=== PATIENT | female | born 1950 | race Caucasian/White ===

== ENCOUNTER 2016-10-06 07:20 | Emergency (ER) | payer MEDICAID, OTHER ==
[~2016-10-06] VITALS: Ht 167.6 cm; Wt 54.4 kg
[2016-10-06] MEDS ORDERED: ALBUTEROL SULF 2.5 MG/0.5ML(0.5%) NEB SOLN NEB ONE (08:45)
[2016-10-06] MEDS ORDERED: IPRATROPIUM BROM 0.5 MG/2.5ML INH SOL NEB ONE (08:45)
[2016-10-06 08:49] LABS: Basophils # (auto) 0 uL; Basophils % (auto) 0.5 % (0.0-2.0); Eosinophils # (auto) 0.3 uL; Eosinophils % (auto) 3.9 % (0.0-7.0); Hematocrit 42.3 % (36.0-46.0); Lymphocytes # (auto) 1.5 uL; Lymphocytes % (auto) 21.3 % (10.0-50.0); Mean Corpuscular Hemoglobin 30.1 pg (28.0-32.0); Mean Corpuscular Hgb Conc. 33.2 g/dL (32.0-36.0); Mean Corpuscular Volume 90.7 fL (80.0-100.0); Mean Platelet Volume 7.1 fL (7.4-10.4); Monocytes # (auto) 0.7 uL; Monocytes % (auto) 10.4 % (0.0-12.0); Neutrophils # (auto) 4.4 uL; Neutrophils % (auto) 63.9 % (37.0-80.0); Platelet Count (auto) 380 10^3/uL (140-450); Red Cell Distribution Width 13.6 % (11.6-16.0); White Blood Cell 6.9 10^3/uL (4.4-10.8)
[2016-10-06 09:16] LABS: Albumin 3.6 g/dL (3.4-5.0); BUN/Creatinine Ratio 11.4; Bilirubin, Total 0.2 mg/dL (0.2-1.0); Calcium 10.6 mg/dL (8.5-10.1); Magnesium 2.1 mg/dL (1.6-2.6); Potassium 3.8 mmol/L (3.5-5.1); Total Protein 7.6 g/dL (6.4-8.2)
[2016-10-06] MEDS ORDERED: ALBUAER3 IN (10:05)
[2016-10-06] MEDS ORDERED: LISI40TA PO (10:05)
[2016-10-06] MEDS ORDERED: FLUT250M2 INH (10:05)
[2016-10-06] MEDS ORDERED: ZOLP5TAB5 PO (10:05)
[2016-10-06] MEDS ORDERED: ATEN-60 PO (10:05)
[2016-10-06] MEDS ORDERED: CARI250T8 PO (10:26)
[2016-10-06] MEDS ORDERED: methylPREDNISolone SOD SUCC 125 MG/2 ML VL IV ONE (10:45)
[2016-10-06 11:07] VITALS: BP 153/99
== END 2016-10-06 12:59 | disposition home or self-care (01) ==
LOC: ER 07:27
DX: J44.0 Chronic obstructive pulmonary disease with (acute) lower respiratory infection (principal); J20.9 Acute bronchitis, unspecified; E83.52 Hypercalcemia; G62.9 Polyneuropathy, unspecified; I10 Essential (primary) hypertension; R73.9 Hyperglycemia, unspecified
CPT/HCPCS: 36415; 71010; 80053; 83735; 84484; 85025; 85049; 93005; 94640; 96374; 99285; J2930

== ENCOUNTER 2021-09-24 08:57 | Emergency (ER) | payer MEDICAID, MEDICARE ==
[~2021-09-24] VITALS: Ht 152.4 cm; Wt 41.3 kg
[~2021-09-24 08:57] MED LIST: ALBUAER3 IN; AMLO-489 PO; ATEN-60 PO; CARI250T PO; FLUT250M2 INH; LISI40TA11 PO; ZOLP5TAB5 PO
[2021-09-24 09:53] LABS: Basophils # (auto) 0.1 10 ^3/uL (0-0.2); Basophils % (auto) 0.5 % (0.0-2.0); Eosinophils # (auto) 0.2 10 ^3/uL (0-0.8); Eosinophils % (auto) 1.6 % (0.0-7.0); Hematocrit 38.5 % (36.0-46.0); Hemoglobin 12.8 g/dL (12.2-16.2); Lymphocytes # (auto) 0.6 10 ^3/uL (0.4-5.4); Lymphocytes % (auto) 4.6 % (10.0-50.0); Mean Corpuscular Hemoglobin 30.1 pg (28.0-32.0); Mean Corpuscular Hgb Conc. 33.2 g/dL (32.0-36.0); Mean Corpuscular Volume 90.8 fL (80.0-100.0); Monocytes # (auto) 0.7 10 ^3/uL (0-1.3); Monocytes % (auto) 5.2 % (0.0-12.0); Neutrophils # (auto) 11.5 10 ^3/uL (1.6-8.6); Neutrophils % (auto) 88.1 % (37.0-80.0); Nucleated Red Blood Cells % 0.1 %; Red Blood Cells 4.24 10^6/uL (4.0-5.20); White Blood Cell 13.1 10^3/uL (4.4-10.8)
[2021-09-24 10:13] LABS: Albumin 3.4 g/dL (3.4-5.0); Potassium 3.4 mmol/L (3.5-5.1)
[2021-09-24 10:18] LABS: BUN/Creatinine Ratio 21.6; Bilirubin, Total 0.2 mg/dL (0.2-1.0); Total Protein 6.9 g/dL (6.4-8.2)
[2021-09-24 13:44] LABS: Urine Bacteria FEW /hpf (None Seen); Urine Blood Negative /uL (Negative); Urine Hyaline Cast FEW /lpf (0 - 2); Urine Specific Gravity 1.018 (1.001-1.035); Urine WBC 3 /hpf (0 - 5)
[2021-09-24] MEDS ORDERED: PERCOT PO (15:14)
[2021-09-24] MEDS ORDERED: CIPR-173 PO (15:14)
[2021-09-24 15:30] VITALS: BP 132/82
== END 2021-09-24 15:31 | disposition home or self-care (01) ==
LOC: EDBD 08:57 → ER 08:57
DX: K80.20 Calculus of gallbladder without cholecystitis without obstruction (principal); J44.9 Chronic obstructive pulmonary disease, unspecified; I10 Essential (primary) hypertension
CPT/HCPCS: 36415; 74176; 80053; 81001; 83690; 84484; 85025; 93005

== ENCOUNTER 2021-09-28 23:45 | Inpatient (IN) | payer MEDICARE, MEDICAID ==
[~2021-09-28] VITALS: Ht 160 cm; Wt 40.5 kg
[~2021-09-28 23:45] MED LIST changes: +CIPR-173 PO; +PERCOT PO
[2021-09-29] MEDS ORDERED: MORPHINE SULFATE 4 MG/ML SYR/VIAL IV ONE (01:00)
[2021-09-29] MEDS ORDERED: ONDANSETRON HCL 4 MG/2 ML VIAL IV ONE (01:00)
[2021-09-29] MEDS ORDERED: SODIUM CHLORIDE 0.9% 500 ML IVB ONE (01:00)
[2021-09-29 02:42] LABS: Basophils # (auto) 0 10 ^3/uL (0-0.2); Basophils % (auto) 0.1 % (0.0-2.0); Eosinophils # (auto) 0 10 ^3/uL (0-0.8); Hemoglobin 12.3 g/dL (12.2-16.2); Lymphocytes # (auto) 0.3 10 ^3/uL (0.4-5.4); Monocytes # (auto) 0.5 10 ^3/uL (0-1.3); Neutrophils # (auto) 13.5 10 ^3/uL (1.6-8.6); White Blood Cell 14.3 10^3/uL (4.4-10.8)
[2021-09-29 02:49] LABS: Hematocrit 35.8 % (36.0-46.0); Lymphocytes % (auto) 1.9 % (10.0-50.0); Mean Corpuscular Hemoglobin 31.2 pg (28.0-32.0); Mean Corpuscular Hgb Conc. 34.3 g/dL (32.0-36.0); Monocytes % (auto) 3.6 % (0.0-12.0); Neutrophils % (auto) 94.4 % (37.0-80.0); Red Blood Cells 3.94 10^6/uL (4.0-5.20); Red Cell Distribution Width 13.7 % (11.8-14.3)
[2021-09-29 02:57] LABS: Albumin 3.2 g/dL (3.4-5.0); Calcium 8.9 mg/dL (8.5-10.1); Magnesium 2.3 mg/dL (1.6-2.6); Potassium 3.2 mmol/L (3.5-5.1)
[2021-09-29 02:57] LABS: INR 1.04 (0.9-1.15)
[2021-09-29 03:03] LABS: BUN/Creatinine Ratio 12.5; Bilirubin, Total 0.4 mg/dL (0.2-1.0); Total Protein 7.1 g/dL (6.4-8.2)
[2021-09-29] MEDS ORDERED: DOCUSATE SOD 100 MG CAP PO PRN (05:30)
[2021-09-29] MEDS ORDERED: POTASSIUM CHL 20MEQ/50ML 50 ML IV ONE (05:30)
[2021-09-29] MEDS ORDERED: SODIUM CHLORIDE 0.9% 1,000 ML IV SCH (05:30)
[2021-09-29] MEDS ORDERED: ACETAMINOPHEN 325 MG TAB PO PRN (05:30)
[2021-09-29] MEDS ORDERED: ONDANSETRON HCL 4 MG/2 ML VIAL IV PRN (05:30)
[2021-09-29 06:15] LABS: Albumin 3.1 g/dL (3.4-5.0); Calcium 8.4 mg/dL (8.5-10.1); Potassium 3.5 mmol/L (3.5-5.1)
[2021-09-29 06:19] LABS: BUN/Creatinine Ratio 14.7; Bilirubin, Total 0.4 mg/dL (0.2-1.0); Total Protein 6.6 g/dL (6.4-8.2)
[2021-09-29 06:24] LABS: Hematocrit 35.3 % (36.0-46.0); Hemoglobin 12.4 g/dL (12.2-16.2); Mean Corpuscular Hemoglobin 31.7 pg (28.0-32.0); Mean Corpuscular Hgb Conc. 35.2 g/dL (32.0-36.0); Red Blood Cells 3.92 10^6/uL (4.0-5.20); Red Cell Distribution Width 13.9 % (11.8-14.3); White Blood Cell 17.2 10^3/uL (4.4-10.8)
[2021-09-29 06:33] LABS: Basophils % (manual) 0 (0.0-2.0); Blast Cells 0; Eosinophils % (manual) 0 (0-7); Metamyelocytes % 0; Myelocytes % 0; Promyelocytes % 0; Reactive Lymphocytes 0
[2021-09-29] MEDS ORDERED: MORPHINE SULFATE INJECTION 2 MG/ML SYRG IV PRN (06:45)
[2021-09-29] MEDS ORDERED: NITROGLYCERIN 0.4 MG SL TAB SL PRN (06:45)
[2021-09-29] MEDS: metroNIDAZOLE 500MG/100ML 100 ML IV SCH ×3 (06:58→22:44)
[2021-09-29] MEDS ORDERED: POTASSIUM EFFERVESENT TAB 25 MEQ PO ONE (07:45)
[2021-09-29 08:07] LABS: Band Neutrophils % (manual) 14; Lymphocytes % (manual) 2 (10.0-50.0); Monocytes % (manual) 6 (0-12)
[2021-09-29] MEDS: cefTRIAXone 1GM/50ML D5W 50 ML IV SCH (08:44)
[2021-09-29] MEDS: FAMOTIDINE (10MG/ML) 2ML VL IV SCH (10:00)
[2021-09-29] MEDS: SOD CHL 0.9%/ KCL 20MEQ 1,000 ML IV SCH (12:38)
[2021-09-29 13:15] LABS: Urine Bacteria NONE SEEN /hpf (None Seen); Urine Blood Negative /uL (Negative); Urine Mucus FEW (None Seen); Urine WBC 2 /hpf (0 - 5)
[2021-09-29] MEDS: MORPHINE SULFATE INJECTION 2 MG/ML SYRG IV PRN ×3 (14:37→23:24)
[2021-09-29 18:25] VITALS: BP 102/56
[2021-09-29 22:00] VITALS: BP 104/68
[2021-09-30] MEDS: SOD CHL 0.9%/ KCL 20MEQ 1,000 ML IV SCH ×2 (03:07→14:55)
[2021-09-30 05:00] VITALS: BP 102/59
[2021-09-30] MEDS: metroNIDAZOLE 500MG/100ML 100 ML IV SCH ×3 (05:44→22:47)
[2021-09-30] MEDS: MORPHINE SULFATE INJECTION 2 MG/ML SYRG IV PRN ×3 (05:45→20:20)
[2021-09-30 05:54] LABS: Basophils # (auto) 0 10 ^3/uL (0-0.2); Basophils % (auto) 0.8 % (0.0-2.0); Eosinophils # (auto) 0.1 10 ^3/uL (0-0.8); Eosinophils % (auto) 1.8 % (0.0-7.0); Hematocrit 32.3 % (36.0-46.0); Hemoglobin 11.2 g/dL (12.2-16.2); Lymphocytes % (auto) 15.4 % (10.0-50.0); Mean Corpuscular Hemoglobin 31.6 pg (28.0-32.0); Mean Corpuscular Hgb Conc. 34.8 g/dL (32.0-36.0); Mean Corpuscular Volume 90.8 fL (80.0-100.0); Monocytes # (auto) 0.5 10 ^3/uL (0-1.3); Monocytes % (auto) 7.5 % (0.0-12.0); Neutrophils # (auto) 4.7 10 ^3/uL (1.6-8.6); Neutrophils % (auto) 74.5 % (37.0-80.0); Red Blood Cells 3.56 10^6/uL (4.0-5.20); Red Cell Distribution Width 14.5 % (11.8-14.3); White Blood Cell 6.4 10^3/uL (4.4-10.8)
[2021-09-30 06:11] LABS: Albumin 2.6 g/dL (3.4-5.0); Calcium 8.1 mg/dL (8.5-10.1); Potassium 3.8 mmol/L (3.5-5.1)
[2021-09-30 06:13] LABS: BUN/Creatinine Ratio 16.7
[2021-09-30 06:16] LABS: Bilirubin, Total 0.3 mg/dL (0.2-1.0); Total Protein 5.7 g/dL (6.4-8.2)
[2021-09-30] MEDS: FAMOTIDINE (10MG/ML) 2ML VL IV SCH (08:30)
[2021-09-30] MEDS: cefTRIAXone 1GM/50ML D5W 50 ML IV SCH (08:30)
[2021-09-30 09:00] VITALS: BP_SYST 131; BP_SYST 148; BP_DIAS 65; BP_DIAS 81
[2021-09-30] MEDS ORDERED: ALBUTEROL SULF 2.5 MG/0.5ML(0.5%) NEB SOLN NEB PRN (09:45)
[2021-09-30 12:00] VITALS: BP 107/59
[2021-09-30] MEDS ORDERED: BUPIVACAINE 0.25% INJ 50ML VIAL ONE (13:46)
[2021-09-30] MEDS ORDERED: HYDROmorphone HCL 2 MG/ML VL ONE (13:52)
[2021-09-30] MEDS ORDERED: HYDROmorphone HCL 2 MG/ML VL IV PRN ×2 (15:30)
[2021-09-30] MEDS ORDERED: ONDANSETRON HCL 4 MG/2 ML VIAL IV PRN (15:30)
[2021-09-30] MEDS ORDERED: fentaNYL CITRATE 100 MCG/2 ML VL IV PRN (15:30)
[2021-09-30 16:52] VITALS: BP 108/55
[2021-09-30 17:00] VITALS: BP 104/66
[2021-09-30 22:00] VITALS: BP 121/63
[2021-09-30] MEDS: HYDROcodone-ACET 5/325MG TAB PO PRN (22:20)
[2021-10-01] MEDS: MORPHINE SULFATE INJECTION 2 MG/ML SYRG IV PRN ×2 (00:50→05:28)
[2021-10-01] MEDS: SOD CHL 0.9%/ KCL 20MEQ 1,000 ML IV SCH ×2 (01:59→17:35)
[2021-10-01 05:00] VITALS: BP 133/66
[2021-10-01] MEDS: metroNIDAZOLE 500MG/100ML 100 ML IV SCH ×3 (05:27→21:16)
[2021-10-01 08:25] VITALS: BP 110/62
[2021-10-01] MEDS: cefTRIAXone 1GM/50ML D5W 50 ML IV SCH (08:25)
[2021-10-01 09:00] VITALS: BP 110/62
[2021-10-01] MEDS: FAMOTIDINE (10MG/ML) 2ML VL IV SCH (09:40)
[2021-10-01 13:00] VITALS: BP 149/69
[2021-10-01] MEDS: HYDROcodone-ACET 5/325MG TAB PO PRN ×2 (13:14→21:16)
[2021-10-01 18:03] VITALS: BP 144/81
[2021-10-01 20:27] VITALS: BP 128/63
[2021-10-02] MEDS: HYDROcodone-ACET 5/325MG TAB PO PRN (01:50)
[2021-10-02 05:00] VITALS: BP 128/63
[2021-10-02] MEDS: metroNIDAZOLE 500MG/100ML 100 ML IV SCH ×2 (05:47→14:18)
[2021-10-02] MEDS: SOD CHL 0.9%/ KCL 20MEQ 1,000 ML IV SCH (07:20)
[2021-10-02 08:30] VITALS: BP 155/84
[2021-10-02] MEDS: cefTRIAXone 1GM/50ML D5W 50 ML IV SCH (08:45)
[2021-10-02] MEDS: FAMOTIDINE (10MG/ML) 2ML VL IV SCH (09:12)
[2021-10-02 09:37] VITALS: BP 155/84
[2021-10-02 13:41] VITALS: BP 136/75
[2021-10-02 14:47] VITALS: BP 136/75
== END 2021-10-02 16:50 | disposition home or self-care (01) | DRG 417 ==
LOC: ER 23:45 → EDBD 23:45 → OVERFLOW 09-29 06:37 → CENTRAL 09-29 17:38
PROVIDERS: ADMIT Nurse Practitioner Family; ATTEND Internal Medicine
PROC: 0FT44ZZ Resection of Gallbladder, Percutaneous Endoscopic Approach (ICD-10-PCS; principal; 2021-09-30 14:00)
DX: K80.00 Calculus of gallbladder with acute cholecystitis without obstruction (principal); N17.0 Acute kidney failure with tubular necrosis; K65.1 Peritoneal abscess; K65.3 Choleperitonitis; E87.6 Hypokalemia; E88.09 Other disorders of plasma-protein metabolism, not elsewhere classified; I10 Essential (primary) hypertension; J44.9 Chronic obstructive pulmonary disease, unspecified; N28.9 Disorder of kidney and ureter, unspecified; N73.9 Female pelvic inflammatory disease, unspecified; R73.9 Hyperglycemia, unspecified; Z20.822 Contact with and (suspected) exposure to COVID-19; Z80.51 Family history of malignant neoplasm of kidney; Z90.49 Acquired absence of other specified parts of digestive tract
CPT/HCPCS: 36415; 71045; 76705; 80053; 81001; 83036; 83690; 83735; 84484; 85007; 85025; 85027; 85610; 85730; 86850; 86900; 86901; 87040; 87426; 93005; 94640; 96361; 96365; 96367; 96375; G0378; J0696; J2405; J3490

== ENCOUNTER 2022-09-13 20:33 | Inpatient (IN) | payer MEDICARE, MEDICAID ==
[~2022-09-13] VITALS: Ht 160 cm; Wt 58.6 kg
[~2022-09-13 20:33] MED LIST changes: -CIPR-173 PO
[2022-09-13 21:55] LABS: Basophils # (auto) 0 10 ^3/uL (0-0.2); Eosinophils # (auto) 0 10 ^3/uL (0-0.8); Eosinophils % (auto) 0.1 % (0.0-7.0); Lymphocytes # (auto) 0.5 10 ^3/uL (0.4-5.4); Lymphocytes % (auto) 5.8 % (10.0-50.0); Monocytes # (auto) 0.4 10 ^3/uL (0-1.3); Monocytes % (auto) 5.6 % (0.0-12.0)
[2022-09-13 21:56] LABS: Basophils % (auto) 0.6 % (0.0-2.0); Mean Corpuscular Hgb Conc. 31.2 g/dL (32.0-36.0); Mean Corpuscular Volume 73.8 fL (80.0-100.0); Neutrophils % (auto) 87.9 % (37.0-80.0); Nucleated Red Blood Cells % 0.8 %; Red Blood Cells 4.34 10^6/uL (4.0-5.20); White Blood Cell 7.9 10^3/uL (4.4-10.8)
[2022-09-13 22:14] LABS: BUN/Creatinine Ratio 26.5; Calcium 10.4 mg/dL (8.5-10.1); Potassium 4.3 mmol/L (3.5-5.1)
[2022-09-13 22:35] LABS: Bilirubin, Total 0.4 mg/dL (0.2-1.0); Total Protein 6.9 g/dL (6.4-8.2)
[2022-09-13] MEDS ORDERED: levoFLOXacin 500MG 100 ML IV ONE (23:00)
[2022-09-13] MEDS ORDERED: ZOLPIDEM TARTRATE 5 MG TAB PO PRN (23:30)
[2022-09-13] MEDS ORDERED: ACETAMINOPHEN 325 MG TAB PO PRN (23:30)
[2022-09-13] MEDS ORDERED: DOCUSATE SOD 100 MG CAP PO PRN (23:30)
[2022-09-14 05:29] LABS: BUN/Creatinine Ratio 28.8; Calcium 9.8 mg/dL (8.5-10.1); Potassium 4.4 mmol/L (3.5-5.1)
[2022-09-14 05:30] LABS: Basophils # (auto) 0 10 ^3/uL (0-0.2); Eosinophils # (auto) 0 10 ^3/uL (0-0.8); Eosinophils % (auto) 0.1 % (0.0-7.0); Lymphocytes # (auto) 0.6 10 ^3/uL (0.4-5.4); Monocytes # (auto) 0.6 10 ^3/uL (0-1.3); White Blood Cell 8.1 10^3/uL (4.4-10.8)
[2022-09-14 05:32] LABS: Basophils % (auto) 0.4 % (0.0-2.0); Hemoglobin 9.8 g/dL (12.2-16.2); Lymphocytes % (auto) 6.8 % (10.0-50.0); Mean Corpuscular Hemoglobin 23.7 pg (28.0-32.0); Mean Corpuscular Hgb Conc. 32.5 g/dL (32.0-36.0); Mean Corpuscular Volume 72.9 fL (80.0-100.0); Monocytes % (auto) 7.5 % (0.0-12.0); Neutrophils # (auto) 6.9 10 ^3/uL (1.6-8.6); Neutrophils % (auto) 85.2 % (37.0-80.0); Nucleated Red Blood Cells % 0.8 %; Red Blood Cells 4.12 10^6/uL (4.0-5.20); Red Cell Distribution Width 17.1 % (11.8-14.3)
[2022-09-14 06:40] LABS: Urine Bacteria NONE SEEN /hpf (None Seen); Urine Blood Negative /uL (Negative); Urine Hyaline Cast FEW /lpf (0 - 2); Urine Mucus FEW (None Seen); Urine WBC 1 /hpf (0 - 5)
[2022-09-14] MEDS ORDERED: FUROSEMIDE 40 MG/4 ML VIAL IV SCH (10:00)
[2022-09-14] MEDS ORDERED: ALBUTEROL SULF HFA 90MCG INH 200DOSE IN SCH (10:00)
[2022-09-14] MEDS ORDERED: ALBUTEROL SULF 2.5 MG/0.5ML(0.5%) NEB SOLN NEB SCH ×2 (10:00)
[2022-09-14] MEDS ORDERED: LISINOPRIL 20 MG TAB PO SCH (10:00)
[2022-09-14] MEDS ORDERED: levoFLOXacin 500MG 100 ML IV SCH (10:00)
[2022-09-14] MEDS ORDERED: ATENOLOL 25 MG TAB PO SCH (10:00)
[2022-09-14] MEDS ORDERED: AZITHROMYCIN 250 MG TAB PO ONE (10:15)
[2022-09-14] MEDS ORDERED: cefTRIAXone 1GM/50ML D5W 50 ML IV ONE (10:15)
[2022-09-14] MEDS ORDERED: ALBUMIN 25% 100 ML IV ONE (10:15)
[2022-09-14] MEDS ORDERED: PANTOPRAZOLE 40 MG TAB PO ONE (10:30)
[2022-09-14] MEDS: amLODIPine BESYLATE 5 MG TAB PO SCH (11:11)
[2022-09-14] MEDS: ONDANSETRON HCL 4 MG/2 ML VIAL IV PRN ×2 (11:38→12:15)
[2022-09-14] MEDS: IPRATROPIUM BROM 0.5 MG/2.5ML INH SOL NEB SCH ×2 (14:00→23:30)
[2022-09-14] MEDS: ALBUTEROL SULF 2.5 MG/0.5ML(0.5%) NEB SOLN NEB SCH ×2 (14:00→23:30)
[2022-09-14 14:26] VITALS: BP 101/56
[2022-09-14] MEDS ORDERED: [UNRECOGNIZED DRUG - CODE] PO (15:43)
[2022-09-14] MEDS ORDERED: CETI-120 PO (15:43)
[2022-09-14] MEDS ORDERED: AMLO-496 PO (15:43)
[2022-09-14] MEDS ORDERED: ALPRAZolam 0.5 MG TAB PO PRN (16:45)
[2022-09-14] MEDS: FUROSEMIDE 20 MG/2 ML VIAL IV SCH (16:57)
[2022-09-14 17:00] VITALS: BP 103/55
[2022-09-14] MEDS: Ensure HIGH Protein Chocolate 8oz Bottle PO SCH (17:44)
[2022-09-14 20:00] VITALS: BP 140/47
[2022-09-14 22:00] VITALS: BP 95/52
[2022-09-14] MEDS ORDERED: levoFLOXacin 250MG 50 ML IV SCH (22:00)
[2022-09-15] VITALS (8 sets, daily range): BP systolic 75–113; BP diastolic 42–63
[2022-09-15] MEDS: FUROSEMIDE 20 MG/2 ML VIAL IV SCH ×3 (05:16→22:00)
[2022-09-15 06:00] LABS: Calcium 8.5 mg/dL (8.5-10.1)
[2022-09-15] MEDS: ALBUTEROL SULF 2.5 MG/0.5ML(0.5%) NEB SOLN NEB SCH ×3 (06:00→18:28)
[2022-09-15] MEDS: IPRATROPIUM BROM 0.5 MG/2.5ML INH SOL NEB SCH ×3 (06:00→18:28)
[2022-09-15 06:03] LABS: BUN/Creatinine Ratio 32.1; Magnesium 1.9 mg/dL (1.6-2.6)
[2022-09-15 06:18] LABS: INR 1.05 (0.9-1.15); Partial Thromboplastin Time 29.2 sec (24.6-33.4)
[2022-09-15] MEDS: Ensure HIGH Protein Chocolate 8oz Bottle PO SCH ×2 (08:00→17:11)
[2022-09-15] MEDS: amLODIPine BESYLATE 5 MG TAB PO SCH (08:45)
[2022-09-15] MEDS: cefTRIAXone 1GM/50ML D5W 50 ML IV SCH (08:45)
[2022-09-15] MEDS: PANTOPRAZOLE 40 MG TAB PO SCH (08:46)
[2022-09-15] MEDS: AZITHROMYCIN 250 MG TAB PO SCH (08:46)
[2022-09-15] MEDS ORDERED: ENOXAPARIN SOD 40 MG/0.4 ML SYRINGE SC ONE (11:30)
[2022-09-15] MEDS ORDERED: ALBUMIN 25% 100 ML IV ONE ×2 (11:30→14:15)
[2022-09-15] MEDS: methylPREDNISolone SOD SUCC 40 MG/ML VL IV SCH ×2 (14:08→22:35)
[2022-09-15] MEDS ORDERED: MIDODRINE HCL 10 MG TAB PO ONE (15:15)
[2022-09-15] MEDS ORDERED: IOHEXOL 350 MG/ML 100ML IJ ONE (15:26)
[2022-09-15] MEDS: MIDODRINE HCL 10 MG TAB PO SCH (17:12)
[2022-09-15] MEDS: HYDROcodone-ACET 5/325MG TAB PO PRN (20:13)
[2022-09-15] MEDS ORDERED: CYCLOBENZAPRINE HCL 10 MG TAB PO ONE (22:00)
[2022-09-15] MEDS: ALPRAZolam 0.25 MG TAB PO PRN (23:33)
[2022-09-16] MEDS: IPRATROPIUM BROM 0.5 MG/2.5ML INH SOL NEB SCH ×4 (00:28→18:42)
[2022-09-16] MEDS: ALBUTEROL SULF 2.5 MG/0.5ML(0.5%) NEB SOLN NEB SCH ×4 (00:28→18:42)
[2022-09-16 05:00] VITALS: BP 109/58
[2022-09-16] MEDS: FUROSEMIDE 20 MG/2 ML VIAL IV SCH ×3 (06:00→22:09)
[2022-09-16] MEDS: methylPREDNISolone SOD SUCC 40 MG/ML VL IV SCH ×3 (07:15→22:09)
[2022-09-16] MEDS: MIDODRINE HCL 10 MG TAB PO SCH ×3 (07:15→17:06)
[2022-09-16 07:37] LABS: BUN/Creatinine Ratio 33.6; Calcium 8.5 mg/dL (8.5-10.1); Magnesium 2.3 mg/dL (1.6-2.6); Potassium 4.4 mmol/L (3.5-5.1)
[2022-09-16] MEDS: Ensure HIGH Protein Chocolate 8oz Bottle PO SCH ×2 (08:00→17:00)
[2022-09-16 09:00] VITALS: BP 103/57
[2022-09-16] MEDS: AZITHROMYCIN 250 MG TAB PO SCH (09:00)
[2022-09-16] MEDS: PANTOPRAZOLE 40 MG TAB PO SCH (09:00)
[2022-09-16] MEDS: cefTRIAXone 1GM/50ML D5W 50 ML IV SCH (09:00)
[2022-09-16] MEDS: ENOXAPARIN SOD 40 MG/0.4 ML SYRINGE SC SCH ×2 (09:00→09:12)
[2022-09-16] MEDS: HYDROcodone-ACET 5/325MG TAB PO PRN (09:04)
[2022-09-16] MEDS ORDERED: ALBUMIN 25% 100 ML IV ONE (12:00)
[2022-09-16 17:15] VITALS: BP 130/64
[2022-09-16 20:00] VITALS: BP 112/79
[2022-09-16 22:00] VITALS: BP 112/79
[2022-09-16] MEDS: ALPRAZolam 0.25 MG TAB PO PRN (22:09)
[2022-09-17] VITALS: BP 112/79
[2022-09-17] MEDS: ALBUTEROL SULF 2.5 MG/0.5ML(0.5%) NEB SOLN NEB SCH ×4 (00:06→19:23)
[2022-09-17] MEDS: IPRATROPIUM BROM 0.5 MG/2.5ML INH SOL NEB SCH ×4 (00:06→19:23)
[2022-09-17 05:00] VITALS: BP 124/62
[2022-09-17] MEDS: MIDODRINE HCL 10 MG TAB PO SCH ×3 (05:26→18:00)
[2022-09-17] MEDS: FUROSEMIDE 20 MG/2 ML VIAL IV SCH ×3 (05:26→22:37)
[2022-09-17] MEDS: methylPREDNISolone SOD SUCC 40 MG/ML VL IV SCH ×3 (05:26→22:41)
[2022-09-17 05:48] LABS: Albumin 3.3 g/dL (3.4-5.0); BUN/Creatinine Ratio 35.2; Calcium 8.3 mg/dL (8.5-10.1); Magnesium 2.3 mg/dL (1.6-2.6); Potassium 4.2 mmol/L (3.5-5.1)
[2022-09-17 05:52] LABS: Bilirubin, Total 0.4 mg/dL (0.2-1.0); Total Protein 6.6 g/dL (6.4-8.2)
[2022-09-17] MEDS: ENOXAPARIN SOD 40 MG/0.4 ML SYRINGE SC SCH (08:10)
[2022-09-17] MEDS: cefTRIAXone 1GM/50ML D5W 50 ML IV SCH (08:11)
[2022-09-17] MEDS: Ensure HIGH Protein Chocolate 8oz Bottle PO SCH ×2 (08:11→18:00)
[2022-09-17] MEDS: PANTOPRAZOLE 40 MG TAB PO SCH (08:11)
[2022-09-17] MEDS: AZITHROMYCIN 250 MG TAB PO SCH (08:12)
[2022-09-17 09:00] VITALS: BP 124/56
[2022-09-17 12:30] VITALS: BP 110/62
[2022-09-17 20:00] VITALS: BP 128/67
[2022-09-17 22:00] VITALS: BP 128/67
[2022-09-17] MEDS: ALPRAZolam 0.25 MG TAB PO PRN (22:42)
[2022-09-18] MEDS: IPRATROPIUM BROM 0.5 MG/2.5ML INH SOL NEB SCH ×4 (00:13→18:45)
[2022-09-18] MEDS: ALBUTEROL SULF 2.5 MG/0.5ML(0.5%) NEB SOLN NEB SCH ×3 (00:13→12:00)
[2022-09-18] MEDS: HYDROcodone-ACET 5/325MG TAB PO PRN ×3 (02:26→16:49)
[2022-09-18 05:00] VITALS: BP 125/69
[2022-09-18] MEDS: FUROSEMIDE 20 MG/2 ML VIAL IV SCH ×3 (05:59→22:00)
[2022-09-18] MEDS: methylPREDNISolone SOD SUCC 40 MG/ML VL IV SCH ×3 (05:59→22:00)
[2022-09-18] MEDS: MIDODRINE HCL 10 MG TAB PO SCH ×3 (06:00→17:45)
[2022-09-18] MEDS: Ensure HIGH Protein Chocolate 8oz Bottle PO SCH ×2 (08:00→18:00)
[2022-09-18 08:32] LABS: Albumin 3.8 g/dL (3.4-5.0); BUN/Creatinine Ratio 34.4; Calcium 8.7 mg/dL (8.5-10.1); Potassium 4.5 mmol/L (3.5-5.1)
[2022-09-18 08:34] LABS: Bilirubin, Total 0.4 mg/dL (0.2-1.0); Total Protein 7.1 g/dL (6.4-8.2)
[2022-09-18 08:44] LABS: Basophils # (auto) 0 10 ^3/uL (0-0.2); Eosinophils # (auto) 0 10 ^3/uL (0-0.8); Lymphocytes # (auto) 0.2 10 ^3/uL (0.4-5.4); Lymphocytes % (auto) 2.3 % (10.0-50.0); Monocytes # (auto) 0.3 10 ^3/uL (0-1.3); Nucleated Red Blood Cells % 0.1 %
[2022-09-18 08:47] LABS: Basophils % (auto) 0.1 % (0.0-2.0); Hematocrit 31.4 % (36.0-46.0); Mean Corpuscular Volume 71.8 fL (80.0-100.0); Monocytes % (auto) 3.1 % (0.0-12.0); Neutrophils % (auto) 94.5 % (37.0-80.0); Red Blood Cells 4.37 10^6/uL (4.0-5.20); Red Cell Distribution Width 17.5 % (11.8-14.3); White Blood Cell 10.6 10^3/uL (4.4-10.8)
[2022-09-18 09:00] VITALS: BP 116/54
[2022-09-18] MEDS: cefTRIAXone 1GM/50ML D5W 50 ML IV SCH (10:36)
[2022-09-18] MEDS: AZITHROMYCIN 250 MG TAB PO SCH (10:36)
[2022-09-18] MEDS: PANTOPRAZOLE 40 MG TAB PO SCH (10:36)
[2022-09-18] MEDS: ENOXAPARIN SOD 40 MG/0.4 ML SYRINGE SC SCH (10:36)
[2022-09-18 13:00] VITALS: BP 110/58
[2022-09-18 17:00] VITALS: BP 139/80
[2022-09-18] MEDS: ALBUTEROL MEDNEB 2.5 mg/3ml NEB NEB SCH (18:45)
[2022-09-18 22:00] VITALS: BP 131/78
[2022-09-18] MEDS: ALPRAZolam 0.25 MG TAB PO PRN (22:30)
[2022-09-19] MEDS: IPRATROPIUM BROM 0.5 MG/2.5ML INH SOL NEB SCH ×4 (00:01→18:21)
[2022-09-19] MEDS: HYDROcodone-ACET 5/325MG TAB PO PRN ×4 (02:15→19:02)
[2022-09-19 05:00] VITALS: BP 122/66
[2022-09-19] MEDS: methylPREDNISolone SOD SUCC 40 MG/ML VL IV SCH (06:05)
[2022-09-19] MEDS: FUROSEMIDE 20 MG/2 ML VIAL IV SCH ×3 (06:05→22:25)
[2022-09-19] MEDS: MIDODRINE HCL 10 MG TAB PO SCH ×3 (06:05→19:01)
[2022-09-19 06:34] LABS: Anion Gap 8 (5-15); Blood Urea Nitrogen 34 mg/dL (7-18); Calcium 8.3 mg/dL (8.5-10.1); Carbon Dioxide 26 mmol/L (21-32); Chloride 99 mmol/L (98-107); Potassium 4.6 mmol/L (3.5-5.1); Sodium 133 mmol/L (136-145)
[2022-09-19 06:37] LABS: BUN/Creatinine Ratio 38.6; GFR African American 82 mL/min; GFR Non-African American 68 mL/min; Glucose 150 mg/dL (74-106); Magnesium 2.2 mg/dL (1.6-2.6)
[2022-09-19] MEDS: ALBUTEROL MEDNEB 2.5 mg/3ml NEB NEB SCH ×4 (07:29→18:21)
[2022-09-19] MEDS: Ensure HIGH Protein Chocolate 8oz Bottle PO SCH ×2 (08:10→18:00)
[2022-09-19 09:00] VITALS: BP 111/74
[2022-09-19] MEDS: ENOXAPARIN SOD 40 MG/0.4 ML SYRINGE SC SCH (09:25)
[2022-09-19] MEDS: cefTRIAXone 1GM/50ML D5W 50 ML IV SCH (09:25)
[2022-09-19] MEDS: PANTOPRAZOLE 40 MG TAB PO SCH (09:25)
[2022-09-19] MEDS: AZITHROMYCIN 250 MG TAB PO SCH (09:25)
[2022-09-19 12:52] VITALS: BP 125/74
[2022-09-19] MEDS: predniSONE 20 MG TAB PO SCH (13:42)
[2022-09-19 17:00] VITALS: BP 130/97
[2022-09-19 20:35] VITALS: BP 130/97
[2022-09-19 22:00] VITALS: BP 161/100
[2022-09-20] MEDS: ALBUTEROL MEDNEB 2.5 mg/3ml NEB NEB SCH ×3 (00:26→12:00)
[2022-09-20] MEDS: IPRATROPIUM BROM 0.5 MG/2.5ML INH SOL NEB SCH ×3 (00:26→12:00)
[2022-09-20] MEDS: HYDROcodone-ACET 5/325MG TAB PO PRN ×2 (00:28→05:33)
[2022-09-20] MEDS: ALPRAZolam 0.25 MG TAB PO PRN (00:28)
[2022-09-20 05:00] VITALS: BP 107/57
[2022-09-20] MEDS: FUROSEMIDE 20 MG/2 ML VIAL IV SCH (05:35)
[2022-09-20] MEDS: MIDODRINE HCL 10 MG TAB PO SCH ×2 (05:35→12:00)
[2022-09-20 07:30] VITALS: BP 109/62
[2022-09-20] MEDS: Ensure HIGH Protein Chocolate 8oz Bottle PO SCH (08:00)
[2022-09-20] MEDS: predniSONE 20 MG TAB PO SCH (08:55)
[2022-09-20] MEDS: PANTOPRAZOLE 40 MG TAB PO SCH (08:55)
[2022-09-20] MEDS: AZITHROMYCIN 250 MG TAB PO SCH (08:55)
[2022-09-20] MEDS: cefTRIAXone 1GM/50ML D5W 50 ML IV SCH (08:56)
[2022-09-20] MEDS: ENOXAPARIN SOD 40 MG/0.4 ML SYRINGE SC SCH (08:57)
[2022-09-20 09:00] VITALS: BP 109/62
[2022-09-20] MEDS ORDERED: PRED20TA2 PO (10:03)
[2022-09-20] MEDS ORDERED: MID10T PO (10:03)
[2022-09-20] MEDS ORDERED: PANT40T PO (10:03)
[2022-09-20] MEDS ORDERED: FURO1TAB33 PO (10:05)
[2022-09-20 11:22] VITALS: BP 109/62
[2022-09-20 13:00] VITALS: BP 102/64
== END 2022-09-20 13:20 | disposition home or self-care (01) | DRG 177 ==
LOC: EDBD 20:33 → ER 20:33 → TELE 23:39 → TELE-CENTR 09-14 13:49
PROVIDERS: ADMIT Hospitalist; ATTEND Internal Medicine
PROC: 5A0935A Assistance with Respiratory Ventilation, Less than 24 Consecutive Hours, High Flow/Velocity Cannula (ICD-10-PCS; principal; 2022-09-14)
PROC: 5A0935A Assistance with Respiratory Ventilation, Less than 24 Consecutive Hours, High Flow/Velocity Cannula (ICD-10-PCS; 2022-09-15)
PROC: 5A0935A Assistance with Respiratory Ventilation, Less than 24 Consecutive Hours, High Flow/Velocity Cannula (ICD-10-PCS; 2022-09-16)
PROC: 5A0935A Assistance with Respiratory Ventilation, Less than 24 Consecutive Hours, High Flow/Velocity Cannula (ICD-10-PCS; 2022-09-17)
PROC: 5A0935A Assistance with Respiratory Ventilation, Less than 24 Consecutive Hours, High Flow/Velocity Cannula (ICD-10-PCS; 2022-09-18)
DX: J15.6 Pneumonia due to other Gram-negative bacteria (principal); I50.43 Acute on chronic combined systolic (congestive) and diastolic (congestive) heart failure; J96.01 Acute respiratory failure with hypoxia; E44.0 Moderate protein-calorie malnutrition; J44.1 Chronic obstructive pulmonary disease with (acute) exacerbation; I11.0 Hypertensive heart disease with heart failure; Z20.822 Contact with and (suspected) exposure to COVID-19; Z79.899 Other long term (current) drug therapy; Z85.528 Personal history of other malignant neoplasm of kidney; Z90.49 Acquired absence of other specified parts of digestive tract; Z68.25 Body mass index [BMI] 25.0-25.9, adult; Z87.891 Personal history of nicotine dependence
CPT/HCPCS: 36415; 36600; 71045; 71250; 71275; 80048; 80053; 81001; 82805; 83735; 83880; 84443; 84484; 85025; 85379; 85610; 85730; 87040; 87070; 87077; 87186; 87205; 87426; 87804; 93005; 93306; 93970; 94640; 96365; 96367; 96375; G0378; J0696; J1956; J2405; P9047